=== PATIENT | female | born 1985 | race Caucasian/White ===

== ENCOUNTER 2019-04-08 20:03 | Emergency (ER) | payer MEDICAID ==
[~2019-04-08] VITALS: Ht 172.7 cm; Wt 72.6 kg
[2019-04-08] MEDS ORDERED: PROAIR HFA8.5 GM INH (20:25)
[2019-04-08] MEDS ORDERED: DELTASONE20 M1 PO (20:25)
[2019-04-08] MEDS ORDERED: FLONASE ALLERG9.9 ML NAS (20:25)
[2019-04-08] MEDS ORDERED: AUGMENTIN 875-875 MG PO (20:25)
== END 2019-04-08 20:52 | disposition home or self-care (01) ==
LOC: ED 20:03
DX: J01.90 Acute sinusitis, unspecified (principal); J20.9 Acute bronchitis, unspecified; R19.7 Diarrhea, unspecified; R11.2 Nausea with vomiting, unspecified; F17.200 Nicotine dependence, unspecified, uncomplicated